=== PATIENT | female | born 1945 | race Caucasian/White ===

== ENCOUNTER 2018-08-10 18:38 | Emergency (ER) | payer OTHER ==
[2018-08-10 18:42] VITALS: TEMP 98.4; BMI 25.7
[2018-08-10] MEDS ORDERED: LOSARTAN POTASSIUM 50 MG TABLET (FP) PO ONE (19:56)
[2018-08-10] MEDS ORDERED: cloNIDine HCL 0.1 MG TABLET PO ONE (19:56)
[2018-08-10] MEDS ORDERED: SODIUM CHLORIDE 1,000 ML IV ONE (19:57)
[2018-08-10] MEDS ORDERED: cloNIDine HCL 0.1 MG TABLET ONE (20:08)
[2018-08-10 20:26] LABS: BASO % 0.3 % (0-2.0); EOS % 0.7 % (0-4.5); HEMATOCRIT 37.9 % (32.4-45.2); HEMOGLOBIN 12.8 GM/dl (10.7-15.3); LYMPH % 15.8 % (8-40); MCH 33.2 pg (25.7-33.7); MCHC 33.8 g/dl (32.0-36.0); MEAN CELL VOLUME 98.2 fl (80-96); MEAN PLT VOLUME 9.8 fl (7.5-11.1); MONO % 6.5 % (3.8-10.2); NEUT % 76.7 % (42.8-82.8); PLATELET COUNT 178 K/MM3 (134-434); RBC 3.86 M/mm3 (3.60-5.2); RDW 11.8 % (11.6-15.6); WHITE BLOOD COUNT 5.7 K/mm3 (4.0-10.8)
[2018-08-10 20:39] LABS: ALBUMIN 4.2 g/dl (3.4-5.0); ALK PHOS 52 U/L (45-117); ANION GAP 8 MMOL/L (8-16); BILIRUBIN,TOTAL 0.4 mg/dl (0.2-1); BLOOD UREA NITROGEN 17 mg/dl (7-18); CALCIUM 9.3 mg/dl (8.5-10); CHLORIDE 102 mmol/L (98-107); CO2 27 mmol/L (21-32); CREATININE 0.6 mg/dl (0.55-1.3); GLUCOSE,RANDOM 115 mg/dl (74-106); POTASSIUM 3.4 mmol/L (3.5-5.1); SGOT/AST 20 U/L (15-37); SGPT/ALT 17 U/L (13-61); SODIUM 137 mmol/L (136-145); TOT PROT 6.8 g/dl (6.4-8.2)
[2018-08-10] MEDS ORDERED: ONDANSETRON 4 MG/2 ML VIAL IVPB ONE (20:44)
[2018-08-10] MEDS ORDERED: ONDANSETRON 4 MG/2 ML VIAL ONE (20:45)
--- NOTE | 2018-08-10 20:48 | PDOC ---
Documentation entered by Meliton Morales SCRIBE, acting as scribe for Inga Dejesus MD. Inga Dejesus MD: This documentation has been prepared by the Carmen tinsley Juan Manue, SCRIBE, under my direction and personally reviewed by me in its entirety. I confirm that the documentation accurately reflects all work, treatment, procedures, and medical decision making performed by me. History of Present Illness - General Chief Complaint: Nausea/Vomiting Stated Complaint: N/V Time Seen by Provider: 08/10/18 19:26 History Source: Patient, Family Exam Limitations: Language Barrier (Patient primary language is portugese. Daughter translated. ) - History of Present Illness Initial Comments: 08/10/18 19:58 The patient is a 73 year old female presenting with her daughter, who presents to the ED complaining of nausea, vomit and headache. The daughter states that the mother believes that a batch of grapes may have caused her symptoms, that being the last food she ate. She reports multiple episodes of emesis, nonbloody and nonbilious in nature. Another concern of the daughter is the patient's elevated blood pressure. She states that the patient does take her blood pressure medication and took it today. The patient denies chest pain, shortness of breath and dizziness. Denies fever, chills, diarrhea or constipation. Denies dysuria, frequency, urgency and hematuria. PAST MEDICAL HISTORY: HTN and HLD PAST SURGICAL HISTORY: no significant history FAMILY HISTORY: no pertinent history SOCIAL HISTORY: Pt lives with family and is retired MEDICATIONS: reviewed ALLERGIES: As per nursing notes General: No fevers or chills, no weakness, no weight loss HEENT: No change in vision. No sore throat,. No ear pain CardioVascular: No chest pain or shortness of breath Respiratory:No cough, or wheezing. Gastrointestinal: (+) Nausea, vomiting. No diarrhea or constipation, No rectal bleeding Genitourinary: No dysuria, hematuria, or frequency Musculoskeletal: No joint or muscle pain or swelling Neurologic: No headache, vertigo, dizziness or loss of consciousness Psychiatric: nor depression Skin: No rashes or easy bruising Endocrine: no increased thirst or abnormal weight change Allergic: no skin or latex allergy All other systems reviewed and normal General: Well-nourished well-developed individual, no acute distress HEENT:(+) Dry Mucous membranes Normal, tonsils normal, no erythema or exudate Neck: Supple, no meningeal signs, no lymphadenopathy Eyes::Pupils equal reactive and round, extraocular motion intact Chest: Nontender to palpation Cardiac: S1-S2 normal, regular rate and rhythm, no murmurs rubs or gallops Respiratory: Lungs clear to auscultation bilateral Abdomen: (+) Tenderness and palpation epigastric. Soft, nondistended, normal bowel sounds Extremities: Warm, dry, no cyanosis, clubbing, or edema Skin: No rashes Neuro: Alert and oriented x3, nonfocal exam, grossly intact, normal gait Psych: Normal mood and affect Assessment plan: This is a 73-year-old female who speaks primarily Faroese so information was via her daughter. As per the daughter patient has had some nausea vomiting today and is complaining of a headache that is mild in nature and patient describes it more as a pressure. Patient's blood pressure is noted to be elevated here in the ED. Patient was complaining of some mild nausea but said that she was beginning to feel better. Patient will be given some medication to lower her blood pressure, some fluids as she does appear dry in spite of her high blood pressure and antiemetics. Workup initiated including EKG that shows a normal sinus rhythm at a rate of [address] T wave changes a slightly prolonged QT but otherwise normal. Rest of workup included CBC, comp, cardiac enzymes. 08/10/18 20:45 Past History - Past Medical History Allergies/Adverse Reactions: Allergies Allergy/AdvReac Type Severity Reaction Status Date / Time No Known Drug Allergies Allergy Verified 08/10/18 18:39 Home Medications: Ambulatory Orders Atorvastatin Ca [Lipitor] 20 mg PO HS 08/10/18 Hydrochlorothiazide [Hctz -] 25 mg PO DAILY 08/10/18 Losartan Potassium [Cozaar -] 50 mg PO DAILY 08/10/18 Ondansetron [Zofran *Odt*] 8 mg SL TID #12 od.tablet 08/10/18 Ondansetron [Zofran *Odt*] 8 mg SL TID #12 od.tablet 08/10/18 Pantoprazole Sodium [Protonix -] 20 mg PO DAILY 08/10/18 Anemia: No Asthma: No Cancer: No Cardiac Disorders: No CVA: No COPD: No CHF: No Dementia: No Diabetes: No GI Disorders: No Disorders: No HTN: Yes Hypercholesterolemia: Yes Liver Disease: No Seizures: No Thyroid Disease: No - Surgical History Abdominal Surgery: No Appendectomy: No Cardiac Surgery: No Cholecystectomy: No Lung Surgery: No Neurologic Surgery: No Orthopedic Surgery: No - Suicide/Smoking/Psychosocial Hx Smoking History: Never smoked Have you smoked in the past 12 months: No Hx Alcohol Use: Yes (OCASIONAL) Drug/Substance Use Hx: No Substance Use Type: Alcohol Hx Substance Use Treatment: No *Physical Exam - Vital Signs Last Vital Signs Temp Pulse Resp BP Pulse Ox 98.4 F 87 18 190/89 H 96 08/10/18 18:39 08/10/18 18:39 08/10/18 18:39 08/10/18 18:39 08/10/18 18:39 ED Treatment Course - LABORATORY CBC & Chemistry Diagram: 08/10/18 20:05 08/10/18 20:05 - ADDITIONAL ORDERS Additional order review: Laboratory Results 08/10/18 08/10/18 08/10/18 20:05 20:00 20:00 Sodium 137 Potassium 3.4 L Chloride 102 Carbon Dioxide 27 Anion Gap 8 BUN 17 Creatinine 0.6 Creat Clearance w eGFR 97.46 Random Glucose 115 H Calcium 9.3 Total Bilirubin 0.4 AST 20 ALT 17 Alkaline Phosphatase 52 Creatine Kinase 65 Troponin I < 0.03 Total Protein 6.8 Albumin 4.2 08/10/18 20:05 RBC 3.86 MCV 98.2 H MCHC 33.8 RDW 11.8 MPV 9.8 Neutrophils % 76.7 Lymphocytes % 15.8 Monocytes % 6.5 Eosinophils % 0.7 Basophils % 0.3 - Medications Given in the ED: ED Medications Discontinued Medications Generic Name Dose Route Start Last Admin Trade Name Freq PRN Reason Stop Dose Admin Clonidine 0.2 mg 08/10/18 19:56 08/10/18 20:11 Catapres - PO 08/10/18 19:57 0.2 mg ONCE ONE Administration Losartan Potassium 50 mg 08/10/18 19:56 08/10/18 20:17 Cozaar - PO 08/10/18 19:57 50 mg ONCE ONE Administration *DC/Admit/Observation/Transfer Diagnosis at time of Disposition: Nausea and vomiting Qualifiers: Vomiting type: unspecified Vomiting Intractability: non-intractable Qualified Code(s): R11.2 - Nausea with vomiting, unspecified - Discharge Dispostion Disposition: HOME Condition at time of disposition: Stable Decision to Admit order: No - Referrals - Patient Instructions Additional Instructions: I'm sending a prescription to your pharmacy for an antinausea medication get the prescription filled and U can take one tablet as often as 3 times a day if needed for nausea or vomiting. Return to the emergency department immediately with ANY new, persistent or worsening symptoms. Continue any medications as previously prescribed by your physician. You should follow up with your primary doctor as soon as possible regarding today's emergency department visit. . Please make sure your doctor reviews the results of your emergency evaluation. Thank you for coming to the Emergency Department today for your care. It was a pleasure to see you today. Please note that your evaluation is INCOMPLETE until you follow-up with your doctor. - Post Discharge Activity - Attestations Scribe Attestion: 08/10/18 19:58 Documentation prepared by Meliton Morales, acting as medical instrument technician for Inga Dejesus MD
[2018-08-10 21:11] VITALS: BP 137/60; PULSE 63
[2018-08-10] MEDS ORDERED: POTASSIUM CHLORIDE TABS 20 MEQ TABLET.ER (FP) PO ONE ×2 (21:12→21:17)
[2018-08-10 23:09] LABS: LIPASE 72 U/L (73-393)
--- NOTE | 2018-08-11 12:10 | EKG ---
Test Reason : Blood Pressure : / mmHG Vent. Rate : 081 BPM Atrial Rate : 081 BPM P-R Int : 178 ms QRS Dur : 092 ms QT Int : 432 ms P-R-T Axes : 067 032 047 degrees QTc Int : 501 ms NORMAL SINUS RHYTHM PROLONGED QT ABNORMAL ECG NO PREVIOUS ECGS AVAILABLE Confirmed by LISA GALINDO MD ([id number]) on 08/11/2018 12:09:46 PM Referred By: MD CHAVEZ Confirmed By:LISA GALINDO MD
== END 2018-08-10 21:53 | disposition home or self-care (01) ==
LOC: FER 18:38
PROC: 3E033GC Introduction of Other Therapeutic Substance into Peripheral Vein, Percutaneous Approach (ICD-10-PCS; principal; 2018-08-10)
PROC: 3E0337Z Introduction of Electrolytic and Water Balance Substance into Peripheral Vein, Percutaneous Approach (ICD-10-PCS; 2018-08-10)
DX: R11.2 Nausea with vomiting, unspecified (principal); E78.00 Pure hypercholesterolemia, unspecified; I10 Essential (primary) hypertension
CPT/HCPCS: 36415; 80053; 82550; 83690; 84484; 85025; 93005; 96361; 96374; 99283-25; J0735; J7030

== ENCOUNTER 2019-10-12 04:15 | Emergency (ER) | payer OTHER ==
[2019-10-12 04:26] VITALS: TEMP 98.1; BMI 26.9
[2019-10-12] MEDS ORDERED: SODIUM CHLORIDE 500 ML IV STA (04:46)
--- NOTE | 2019-10-12 04:47 | PDOC ---
History of Present Illness - General Chief Complaint: Pain Stated Complaint: ABDOMINAL PAIN Time Seen by Provider: 10/12/19 04:44 - History of Present Illness Initial Comments: 10/12/19 04:50 This 74-year-old woman with a history of HTN, HLD, colitis and hiatal hernia presents with her daughter with few week history of progressive generalized abdominal pain, bloating and constipation. Patient speaks mainly Czech and her daughter is interpreting. Over the last several days, she has also been intermittently nauseated, although she has not vomited. She states that the most recent normal bowel movement was 2 weeks ago; she is able to occasionally pass small amounts of hard stool. She states that she feels that she has no increase of "gas" and bloating in her intestines. There has been no fever/chills. She denies chest pain, shortness of breath or cough. Because of patient's abdominal discomfort, she states that she has not taken her daily medications for approximately a week No previous history of this type of pain; no history of small bowel obstruction. Patient has no previous abdominal surgical procedures Patient has an upcoming appointment with her PMD, Dr. Urbano but generalized pain was too severe overnight. Medications as noted below No known drug allergies Non-smoker no daily alcohol or other recreational drug use Past History - Medical History Allergies/Adverse Reactions: Allergies Allergy/AdvReac Type Severity Reaction Status Date / Time No Known Drug Allergies Allergy Verified 10/12/19 04:21 Home Medications: Ambulatory Orders Atorvastatin Ca [Lipitor] 20 mg PO HS 08/10/18 Hydrochlorothiazide [Hctz -] 25 mg PO DAILY 08/10/18 Losartan Potassium [Cozaar -] 50 mg PO DAILY 08/10/18 Pantoprazole Sodium [Protonix -] 20 mg PO DAILY 08/10/18 Anemia: No Asthma: No Cancer: No Cardiac Disorders: Yes (Angina) CVA: No COPD: No CHF: No Dementia: No Diabetes: No GI Disorders: Yes (Colitis, hiatal hernia) Disorders: No HTN: Yes Hypercholesterolemia: Yes Liver Disease: No Seizures: No Thyroid Disease: No - Surgical History Abdominal Surgery: No Appendectomy: No Cardiac Surgery: No Cholecystectomy: No Lung Surgery: No Neurologic Surgery: No Orthopedic Surgery: No - Psycho-Social/Smoking History Smoking History: Never smoked Have you smoked in the past 12 months: No Information on smoking cessation initiated: No - Substance Abuse Hx (Audit-C & DAST Scrn) How often the patient has a drink containing alcohol: Monthly or less Score: In Men: 4 or > Positive; In Women: 3 or > Positive: 1 Screen Result (Pos requires Nsg. Audit-10AR): Negative In the last yr the pt used illegal drug/Rx for NonMed reason: No Score: Yes response is considered Positive: 0 Screen Result (Positive result requires Nsg. DAST-10): Negative Review of Systems - Review of Systems Able to Perform ROS?: Yes Comments:: 12 point review of systems is negative except for what is noted in the history of present illness *Physical Exam - Vital Signs Last Vital Signs Temp Pulse Resp BP Pulse Ox 98.1 F 103 H 18 210/117 H 98 10/12/19 04:22 10/12/19 04:22 10/12/19 04:22 10/12/19 04:22 10/12/19 04:22 - Physical Exam GENERAL: Adult female, alert and oriented x3, speaking mainly Czech; in mild distress secondary generalized abdominal discomfort HEAD: Normal with no signs of trauma. EYES: PERRLA, EOMI, sclera anicteric, conjunctiva clear. ENT: Ears normal, nares patent, oropharynx clear without exudates. Dry mucous membranes. NECK: Normal range of motion, supple without lymphadenopathy, JVD, or masses. LUNGS: Breath sounds equal, clear to auscultation bilaterally. No wheezes, and no crackles. HEART:Regular rate and rhythm, normal S1 and S2 without murmur, rub or gallop. ABDOMEN:.normal bowel sounds ;soft, distended; mild right upper quadrant tenderness; no guarding or rebound.No masses EXTREMITIES: Normal range of motion, no edema. No clubbing or cyanosis. No erythema, or tenderness. NEUROLOGICAL: Cranial nerves II through XII grossly intact. Normal speech. No focal neurological deficits SKIN: Warm, Dry, normal turgor, no rashes or lesions noted. Twelve-lead electrocardiogram performed: Normal sinus rhythm at 70 bpm; i ntervals, axis and waveforms are all normal. No evidence of acute ST or T wave abnormalities. No evidence of acute cardiac arrhythmia. Unchanged (except for normalization of QTC) from EKG dated 08/10/2018 ED Treatment Course - LABORATORY CBC & Chemistry Diagram: 10/12/19 05:00 10/12/19 05:00 Medical Decision Making - Medical Decision Making This 74-year-old woman with HTN/HLD/colitis presents with progressive generalized abdominal pain over the last few weeks associated with constipation and very recently nausea. Exam as noted with minimal tenderness but generalized soft distention of her abdomen. Although the patient does not have significant abdominal tenderness, because of her advanced age, some diagnostic work-up of her abdominal pain will be undertaken: CBC/chemistry profile/lipase will be evaluated as well as a flat and upright of the abdomen to assess bowel gas pattern and evaluation for constipation. 10/12/19 05:51 Abdominal flat and upright x-ray performed: No evidence of small bowel obstruction with minimal small bowel gas seen.Fecal retention present Rectal exam performed: No stool present in rectal ampulla, no evidence of masses or other abnormality 10/12/19 06:44 CBC, chemistry profile, troponin, lipase are all essentially normal Clinical presentation most consistent with constipation Patient was discharged in the company of her daughter with instructions to drink plenty of water as well as include fiber in her diet. MiraLAX to be taken on a daily basis. To relieve her constipation currently, citrate of magnesium followed by fleets enema as recommended. Instructions for administration of enema given to the daughter. If there is any increase in pain or nausea/vomiting/fever develop, they should return to the ER. Follow-up appointment with PMD, Dr. Urbano is already scheduled for early next week Discharge - Discharge Information Problems reviewed: Yes Clinical Impression/Diagnosis: Constipation Condition: Stable Disposition: HOME - Follow up/Referral Referrals: Yana Urbano MD [Staff Physician] - - Patient Discharge Instructions Patient Printed Discharge Instructions: Constipation Additional Instructions: drink plenty of water and include fiber in your diet Citrate of Magnesium -drink one bottle today Miralax daily Fleets enema as needed Follow-up with Dr Urbano as previously scheduled Return to ER if abdominal pain worsens or vomiting/fever develop - Post Discharge Activity
[2019-10-12] MEDS ORDERED: LOSARTAN POTASSIUM 50 MG TABLET (FP) PO ONE (05:16)
[2019-10-12 05:41] LABS: BASO % 0.7 % (0-2.0); EOS % 1.6 % (0-4.5); HEMOGLOBIN 13.2 GM/dL (10.7-15.3); LYMPH % 27.9 % (8-40); MCH 34.1 pg (25.7-33.7); MCHC 34.6 g/dl (32.0-36.0); MEAN CELL VOLUME 98.5 fl (80-96); MEAN PLT VOLUME 9.8 fl (7.5-11.1); MONO % 8.9 % (3.8-10.2); NEUT % 60.9 % (42.8-82.8); PLATELET COUNT 198 K/MM3 (134-434); RBC 3.86 M/mm3 (3.60-5.2); RDW 12.6 % (11.6-15.6); WHITE BLOOD COUNT 5.5 K/mm3 (4.0-10.0)
[2019-10-12 06:23] LABS: ALBUMIN 3.7 g/dl (3.4-5.0); ALK PHOS 65 U/L (45-117); ANION GAP 7 MMOL/L (8-16); BILIRUBIN,TOTAL 0.4 mg/dL (0.2-1); BLOOD UREA NITROGEN 18.7 mg/dL (7-18); CALCIUM 9.1 mg/dL (8.5-10.1); CHLORIDE 104 mmol/L (98-107); CO2 31 mmol/L (21-32); CREATININE 0.8 mg/dL (0.55-1.3); GLUCOSE,RANDOM 99 mg/dL (74-106); LIPASE 67 U/L (73-393); POTASSIUM 3.6 mmol/L (3.5-5.1); SGOT/AST 15 U/L (15-37); SGPT/ALT 22 U/L (13-61); SODIUM 142 mmol/L (136-145); TOT PROT 6.9 g/dl (6.4-8.2)
[2019-10-12 06:40] VITALS: BP 169/82; PULSE 62
--- NOTE | 2019-10-12 17:41 | EKG ---
Test Reason : Blood Pressure : / mmHG Vent. Rate : 070 BPM Atrial Rate : 070 BPM P-R Int : 190 ms QRS Dur : 090 ms QT Int : 430 ms P-R-T Axes : 047 056 036 degrees QTc Int : 464 ms NORMAL SINUS RHYTHM NORMAL ECG WHEN COMPARED WITH ECG OF 10-AUG-2018 18:54, NO SIGNIFICANT CHANGE WAS FOUND Confirmed by LISA GALINDO MD ([id number]) on 10/12/2019 5:40:30 PM Referred By: DR PATINO Confirmed By:LISA GALINDO MD
== END 2019-10-12 06:41 | disposition home or self-care (01) ==
LOC: FER 04:15
PROC: 3E0337Z Introduction of Electrolytic and Water Balance Substance into Peripheral Vein, Percutaneous Approach (ICD-10-PCS; principal; 2019-10-12)
DX: K59.00 Constipation, unspecified (principal)
CPT/HCPCS: 36415; 74019-TC-FY; 80053; 82550; 83690; 84484; 85025; 93005; 99285-25

== ENCOUNTER 2022-09-09 04:20 | Day surgery (SDC) | payer OTHER ==
[2022-09-07 09:46] VITALS: BMI 25.6
[~2022-09-09 04:20] MED LIST: ACETAMINOPHEN 325 MG TABLET (FP) PO PRN
[2022-09-09] MEDS ORDERED: EPINEPHrine/PF 1 MG/1 ML (1:1,000) AMPULE ONE (07:26)
[2022-09-09] MEDS ORDERED: BUPIVACAINE HCL/PF 0.75% 10 ML VIAL ONE (07:27)
[2022-09-09] MEDS ORDERED: POVIDONE-IODINE 5% OPHTHALMIC PREP 30 ML SOLUTION ONE (07:27)
[2022-09-09] MEDS ORDERED: CYCLOPENTOLATE HCL 1% OPHTH SOLN 2 ML BOTTLE ONE (09:01)
[2022-09-09] MEDS ORDERED: PHENYLEPHRINE 2.5% OPTHALMIC DROP 2ML BOTTLE ONE (09:01)
[2022-09-09] MEDS ORDERED: OFLOXACIN 0.3% OPHTHALMIC SOLUTION 5 ML BOTTLE ONE (09:01)
[2022-09-09] MEDS ORDERED: KETOROLAC TROMETHAMINE 0.5% EYE DROP 1 DROP DROPS ONE (09:01)
[2022-09-09] MEDS ORDERED: TROPICAMIDE 1% 3 ML EYE DROPS ONE (09:08)
[2022-09-09 09:10] VITALS: RESP 18
[2022-09-09] MEDS: KETOROLAC TROMETHAMINE 0.5% EYE DROP 1 DROP DROPS OP SCH ×3 (09:30→09:50)
[2022-09-09] MEDS: OFLOXACIN 0.3% OPHTHALMIC SOLUTION 5 ML BOTTLE OP SCH ×3 (09:30→09:50)
[2022-09-09] MEDS: TROPICAMIDE 1% OPHTH SOLN 15 ML BOTTLE OP SCH ×3 (09:30→09:50)
[2022-09-09] MEDS: PHENYLEPHRINE 2.5% OPHTH SOLN 15 ML BOTTLE OP SCH ×3 (09:30→09:50)
[2022-09-09] MEDS: CYCLOPENTOLATE HCL 1% OPHTH SOLN 2 ML BOTTLE OP SCH ×3 (09:30→09:50)
[2022-09-09] MEDS ORDERED: CHONDROITIN SU A/HYALUR SOD 1 KIT IO ONE (11:18)
[2022-09-09] MEDS ORDERED: EPINEPHrine/PF 1 MG/1 ML (1:1,000) AMPULE IM ONE (11:18)
[2022-09-09] MEDS ORDERED: BSS (NA/CA/MG/K) BALANCED SALT SOLUTION OPHTH SOLN 15 ML BOTTLE OS ONE (11:18)
[2022-09-09] MEDS ORDERED: LIDOCAINE HCL 1% PRESERVATIVE FREE - 30ML VIAL IO ONE (11:18)
[2022-09-09] MEDS ORDERED: POVIDONE-IODINE 5% OPHTHALMIC PREP 30 ML SOLUTION OS ONE (11:18)
[2022-09-09] MEDS ORDERED: TETRACAINE 0.5% OPHTH SOLN 2 ML BOTTLE OS ONE (11:18)
[2022-09-09] MEDS ORDERED: LIDOCAINE HCL/PF 2% SDV 5ML VIAL INF ONE (11:29)
[2022-09-09] MEDS ORDERED: BUPIVACAINE HCL/PF 0.75% 10 ML VIAL RB ONE (11:29)
[2022-09-09 13:29] VITALS: BP 139/61; PULSE 60; TEMP 98.2
== END 2022-09-09 13:00 | disposition home or self-care (01) ==
LOC: JASU-SURG 04:20
PROVIDERS: ATTEND Ophthalmology
PROC: 08RK3JZ Replacement of Left Lens with Synthetic Substitute, Percutaneous Approach (ICD-10-PCS; principal; 2022-09-09 11:17)
DX: H26.9 Unspecified cataract (principal)
CPT/HCPCS: V2632